=== PATIENT | male | born 1965 | race Caucasian/White ===

== ENCOUNTER 2020-08-01 15:11 | Inpatient (IN) | payer MEDICAID ==
[~2020-08-01] VITALS: Ht 172.7 cm; Wt 131.5 kg
--- NOTE | 2020-08-01 15:30 | NUR ---
SENT FROM OPTHALMOLOGY OFFICE FOR HIGH BLOOD PRESSURE AND BLURRY VISION X 4 DAYS. PATIENT A/OX4, BREATHING EVEN AND UNLABORED, NO S/SX OF STROKE AT THIS TIME, PATIENT IS C/O PRESSURE ON RIGHT EYE. CHANGED INTO A GOWN, ATTACHED TO THE LIFE INSURANCE SALES AGENT. NO DISTRESS NOTED.
[2020-08-01] MEDS ORDERED: ENALAPRILAT INJ (1.25 MG/ML) 1.25 MG/ML VIAL IV ONE (15:47)
[2020-08-01] MEDS ORDERED: HYDROCHLOROTHIAZIDE 25 MG TABLET ONE (15:47)
[2020-08-01] MEDS ORDERED: CEFTRIAXONE 1GM BAG (ER ONLY) 1 GM/50 ML PIGGYBACK IV ONE (16:00)
[2020-08-01] MEDS ORDERED: CLONIDINE HCL 0.1 MG TABLET PO ONE (16:00)
[2020-08-01] MEDS ORDERED: IV NS 0.9% 500 ML BAG IV ONE (16:00)
[2020-08-01] MEDS ORDERED: HYDROCHLOROTHIAZIDE 25 MG TABLET PO ONE (16:00)
[2020-08-01] MEDS ORDERED: ENALAPRILAT INJ (1.25 MG/ML) 1.25 MG/ML VIAL IV PRN (16:00)
[2020-08-01] MEDS ORDERED: CLONIDINE HCL 0.1 MG TABLET ONE (16:13)
[2020-08-01 16:16] LABS: BASOPHILS % (AUTO) 0.3 % (0.0-2.0); EOSINOPHILS % (AUTO) 0.5 % (0.0-6.0); HEMATOCRIT 51 % (39-51); LYMPHOCYTES # (AUTO) 1.9 /CMM (0.8-4.8); LYMPHOCYTES % (AUTO) 27.5 % (20.0-44.0); MEAN CORPUSCULAR HGB CONC 33 g/dl (31.0-36.0); MEAN CORPUSCULAR VOLUME 91 fL (80-96); MONOCYTES # (AUTO) 0.6 /CMM (0.1-1.30); MONOCYTES % (AUTO) 7.9 % (2.0-12.0); NEUTROPHILS # (AUTO) 4.5 /CMM (1.8-8.9); NEUTROPHILS % (AUTO) 63.8 % (43.0-81.0); PLATELET COUNT (AUTO) 223 /CMM (150-450); RED BLOOD CELL COUNT(AUTO) 5.59 MIL/uL (4.5-6.0)
--- NOTE | 2020-08-01 16:22 | NUR ---
PER DR. DUMONT, HOLD OFF ON THE ROCEPHIN AT THIS TIME.
[2020-08-01 16:23] LABS: CALCIUM, SERUM 9.2 mg/dL (8.5-10.1); CARBON DIOXIDE 30 mmol/L (21-32); CHLORIDE 102 mmol/L (98-107); CREATININE 1.1 mg/dL (0.6-1.3); GLUCOSE 100 mg/dL (74-106); SODIUM SERUM 140 mmol/L (136-145); UREA NITROGEN, BLOOD 12 mg/dL (7-18)
--- NOTE | 2020-08-01 16:29 | NUR ---
Nathalia murrell in [facility] - 08/01/20 at 1630 by MARIA A bed 203
[2020-08-01 16:38] LABS: ALANINE AMINOTRANSFERASE 56 U/L (12-78); ALBUMIN 3.9 g/dL (3.4-5.0); ALKALINE PHOSPHATASE 68 U/L (46-116); ASPARTATE AMINOTRANSFERASE 26 U/L (15-37); BILIRUBIN,DIRECT 0.2 mg/dL (0.0-0.2); BILIRUBIN,TOTAL 0.8 mg/dL (0.2-1.0); LIPASE 79 U/L (73-393); TOTAL PROTEIN, SERUM 8.1 g/dL (6.4-8.2)
--- NOTE | 2020-08-01 16:42 | NUR ---
CALLED JEFFREY KELLEY FOR ADMISSION.
[2020-08-01] MEDS ORDERED: ASPIRIN 325 MG TABLET ONE (16:48)
[2020-08-01] MEDS ORDERED: ASPIRIN 325 MG TABLET PO ONE (17:00)
[2020-08-01] MEDS ORDERED: MORPHINE SULFATE INJ 2 MG/ML DISP.SYRIN IV PRN (17:30)
[2020-08-01] MEDS ORDERED: ONDANSETRON HCL/PF 4 MG/2 ML VIAL IVP PRN (17:30)
[2020-08-01] MEDS ORDERED: TEMAZEPAM 15 MG CAPSULE PO PRN (17:30)
[2020-08-01] MEDS ORDERED: HYDROMORPHONE INJ 2 MG/ML DISP.SYRIN IV PRN (17:30)
[2020-08-01] MEDS ORDERED: MAGNESIUM HYDROXIDE 30 ML UDC PO PRN (17:30)
[2020-08-01] MEDS ORDERED: ACETAMINOPHEN 325 MG TABLET PO PRN (17:30)
[2020-08-01] MEDS ORDERED: HYDROCODONE/APAP 5/325MG TABLET PO PRN (17:30)
[2020-08-01] MEDS ORDERED: Z GUARD REMEDY 2 OZ OINT TP PRN (17:30)
[2020-08-01] MEDS ORDERED: hydrALAZINE HCL IV 20 MG VIAL IV PRN (17:30)
[2020-08-01] MEDS ORDERED: MAG HYDROX/AL HYDROX/SIMETH 30 ML UDC PO PRN (17:30)
[2020-08-01] MEDS ORDERED: ZOLPIDEM TARTRATE 5 MG TABLET PO PRN (17:30)
--- NOTE | 2020-08-01 17:37 | NUR ---
COVID SWAB SENT.
--- NOTE | 2020-08-01 18:27 | NUR ---
UNABLE TO OBTAIN JASON PSYCH BED PENDING RAPID COVID RESULT
--- NOTE | 2020-08-01 18:36 | NUR ---
NEGATIVE COVID RESULT
--- NOTE | 2020-08-01 19:09 | NUR ---
PT AAOX4, VSS, RESPIRATIONS EVEN AND UNLABORED ON RA W/ NAD NOTED. PT CONNECTED TO THE MONITOR AND POX.
--- NOTE | 2020-08-01 19:53 | NUR ---
BED ASSIGNMENT 113-2
--- NOTE | 2020-08-01 20:08 | NUR ---
NURSE IS NOT AVAILABLE AT THIS TIME. THEY WILL CALL BACK FOR REPORT
--- NOTE | 2020-08-01 20:49 | NUR ---
REPORT GIVEN TO JAMI GILMAN FOR GERARD
[2020-08-01 20:58] VITALS: BP 155/98
--- NOTE | 2020-08-01 20:58 | NUR ---
TELE RECEIVED PTS FROM ER,54 MALE Y/O ALERT AND ORIENTED X4.ADMITTED WITH DIAGNOSIS HYPERTENSIVE URGENCY .PT IS ABLE TO MAKE NEEDS KNOWN ,SPEAKS CITIZEN OF [place]. ADMISSION ROUTINE CARE RENDERED , BODY CHECK DONE PLS SEE SKIN ASSESSMENT FORM. PT IS ON CARDIAC LOW FAT DIET AND IS FULL CODE. PT IS IN STABLE CONDITION AT THIS TIME WITH NO ACUTE DISTRESS OR SOB NOTED.ON R/A SATING 98% . PT IS AMBULATORY PT WITH LEFT AC g#18 INTACT AND PATENT, ALL NEEDS MET CALL LIGHT WITHIN REACH AND FUNCTIONING. BED LOCKED AND IN LOWEST POSITION.WILL CONTINUE TO MONITOR PTS.
--- NOTE | 2020-08-01 21:01 | NUR ---
PT TRANSFERRED TO ROOM VIA ACLS PROTOCOL
[2020-08-01] MEDS: ATORVASTATIN 10 MG TABLET PO SCH (22:51)
[2020-08-02] VITALS: BP 135/88
[2020-08-02 04:52] VITALS: BP 137/90
--- NOTE | 2020-08-02 06:23 | NUR ---
telecom specialist notes Pts in bed awake , v/s stable afebrile remains on r/a saturating well ,all needs attended too, call light within reach, kept pts clean dry and comfortable,will endorse to rn day shift for continuity of care.pt for mri brain .questioners form available on the chart.
[2020-08-02 06:31] LABS: BASOPHILS % (AUTO) 0.3 % (0.0-2.0); EOSINOPHILS % (AUTO) 0.9 % (0.0-6.0); HEMATOCRIT 48 % (39-51); HEMOGLOBIN 16.3 g/dL (13.5-17.5); LYMPHOCYTES # (AUTO) 2.1 /CMM (0.8-4.8); LYMPHOCYTES % (AUTO) 28.7 % (20.0-44.0); MEAN CORPUSCULAR HGB CONC 34 g/dl (31.0-36.0); MEAN CORPUSCULAR VOLUME 90 fL (80-96); MONOCYTES # (AUTO) 0.6 /CMM (0.1-1.30); MONOCYTES % (AUTO) 8.7 % (2.0-12.0); NEUTROPHILS # (AUTO) 4.6 /CMM (1.8-8.9); NEUTROPHILS % (AUTO) 61.4 % (43.0-81.0); PLATELET COUNT (AUTO) 190 /CMM (150-450); RED BLOOD CELL COUNT(AUTO) 5.31 MIL/uL (4.5-6.0); WHITE BLOOD COUNT (AUTO) 7.5 K/uL (4.3-11.0)
[2020-08-02 06:46] LABS: CALCIUM, SERUM 8.7 mg/dL (8.5-10.1); MAGNESIUM 2.4 mg/dL (1.8-2.4); POTASSIUM 3.8 mmol/L (3.5-5.1)
[2020-08-02 06:59] LABS: THYROID STIMULATING HORMONE 1.327 uIU/mL (0.358-3.74)
[2020-08-02] MEDS: PANTOPRAZOLE 40 MG TABLET.DR PO SCH ×2 (07:30→08:39)
[2020-08-02 08:00] VITALS: BP 129/91
--- NOTE | 2020-08-02 08:00 | NUR ---
VALIDATION ARCHITECT RECEIVED PT IN BED AOX4 VS STABLE IV ACCESS PATENT PT DENIES ANY PAIN OR DISCOMFORT CALL LIGHT W/ IN REACH BED LOW POSITION SAFETY MEASURES TAKEN WILL CONT TO MONITOR.
[2020-08-02] MEDS: ASPIRIN 81 MG TAB.CHEW PO SCH (08:39)
[2020-08-02] MEDS: BENAZEPRIL HCL 10 MG TABLET PO SCH (08:41)
[2020-08-02] MEDS ORDERED: AMLODIPINE BESYLATE 5 MG TABLET PO SCH (09:00)
--- NOTE | 2020-08-02 10:19 | NUR ---
CROOK OPERATOR PT PICKED UP FOR MRI, ONCE IN MRI PT BECAME ANXIOUS REFUSED MRI, PT TEACHING DONE, PT OPTIONS WAS DISCUSSED PT WAS STILL ADOMET ABOUT THE SCAN, PT BACK IN ROOM STABLE CONDITIONS WILL SPEAK W/ MD REGARDING THE ISSUE
[2020-08-02 16:00] VITALS: BP 116/86
[2020-08-02 20:00] VITALS: BP 121/86
--- NOTE | 2020-08-02 20:00 | NUR ---
RN OPENING NOTE PT RECEIVED IN BED. A/A/O X4. PT HAS PATENT IV ACCESS, S/L. PT HAS STABLE VS. SAFETY MEASURES IN PLACE BED AT LOWEST POSITION, LOCKED , CALL LIGHT IN REACH.
[2020-08-02] MEDS: ATORVASTATIN 10 MG TABLET PO SCH (22:10)
[2020-08-03 04:00] VITALS: BP 122/85
--- NOTE | 2020-08-03 07:05 | NUR ---
PT LYING IN BED WITH HOB ELEVATED. RESPIRATIONS EVEN AND UNLABORED. SKIN WARM AND FLUSHED. A/O X4. VS STABLE. IV PATENT, FLUSHING WELL, DRESSING INTACT NO REDNESS OR SWELLING. BED LOW, LOCKED, CALL LIGHT WITHIN REACH, RAILS UP X2, ALL HOSPITAL SAFETY PRECAUTIONS IMPLEMENTED. WILL MONITOR VS THROUGHOUT THE DAY.
--- NOTE | 2020-08-03 07:13 | NUR ---
RN CLOSING NOTE PT REMAINED STABLE DURING MY SHIFT, NO CHANGES. REPORT GIVEN TO Addendum: 08/03/20 at 0735 by VIRY GARCIA RN REPORT GIVEN TO INCOMING SHIFT FOR GERARD.
[2020-08-03 08:00] VITALS: BP 121/86
[2020-08-03] MEDS: PANTOPRAZOLE 40 MG TABLET.DR PO SCH (08:13)
[2020-08-03] MEDS: ASPIRIN 81 MG TAB.CHEW PO SCH (08:50)
[2020-08-03 08:51] VITALS: BP 121/86
[2020-08-03] MEDS: BENAZEPRIL HCL 10 MG TABLET PO SCH (08:51)
--- NOTE | 2020-08-03 08:58 | NUR ---
SEEN BY DR SERRANO. ORDERED CTA BRAIN. CONSENT OBTAINED FROM PATIENT AND SIGNED. PLACED IN CHART.
[2020-08-03] MEDS ORDERED: IOHEXOL-350 100 ML VIAL IV ONE (09:49)
[2020-08-03] MEDS ORDERED: CT SWABBABLE VALVE TRANS SET 1 EA INFUS.SET MC ONE (09:49)
[2020-08-03] MEDS ORDERED: IV NS 0.9% 250 ML IV ONE (09:49)
--- NOTE | 2020-08-03 09:53 | NUR ---
PT TAKEN TO CTA VIA WHEELCHAIR. KNOCKER OFF ASSISTED WITH TRANSPORT.
--- NOTE | 2020-08-03 13:40 | NUR ---
JEFFREY SPOKE TO PT. INSTRUCTED PT ON DISEASE PROCESS AND MANAGEMENT. PT VERBALIZED UNDERSTANDING.
--- NOTE | 2020-08-03 14:45 | NUR ---
PT IV TAKEN OUT, NO SIGNS OF BLEEDING. ALL DC INSTRUCTIONS PROVIDED. PT DENIES CONCERNS OR QUESTIONS. PT DC ON WHEELCHAIR. DC TO GIRLFRIEND. ALL BELONGINGS BROUGHT WITH PATIENT. VS STABLE.
== END 2020-08-03 14:36 | disposition home or self-care (01) | DRG 48 ==
LOC: ER 15:18 → TELE1 19:58 → TELE-TD 21:09 → TELE1 21:15 → MEDSG1 08-02 10:09
PROVIDERS: ADMIT Nurse Practitioner Acute Care; ATTEND Nurse Practitioner Acute Care
DX: H49.21 Sixth [abducent] nerve palsy, right eye (principal); I16.0 Hypertensive urgency; E66.9 Obesity, unspecified; Z68.41 Body mass index [BMI] 40.0-44.9, adult; Z86.718 Personal history of other venous thrombosis and embolism; R00.0 Tachycardia, unspecified; I10 Essential (primary) hypertension
CPT/HCPCS: 36415; 70450-TC; 70496-TC; 71045-TC; 80048-TC; 80061-TC; 80076-TC; 83690-TC; 83735-TC; 84100-TC; 84443-TC; 84484-TC; 85025-TC; 85730-TC; 87081-TC; 93307-TC; 93880-TC; 93970-TC; 97116-TC; 97530-TC; 97535-TC; C9803-CS; G0378; J3490; J7040; J7050; Q9967